=== PATIENT | male | born 1950 | race Caucasian/White ===

== ENCOUNTER 2017-05-02 13:23 | Inpatient (IN) ==
[2017-05-02] MEDS ORDERED: ALBUTEROL/IPRATROPIUM 3 ML NEB RESP TX PRN (13:53)
[2017-05-02] MEDS ORDERED: DOCUSATE SODIUM 100 MG CAPSULE PO PRN (13:53)
[2017-05-02] MEDS ORDERED: GLUCAGON 1 MG VIAL IM PRN (13:53)
[2017-05-02] MEDS ORDERED: ACETAMINOPHEN 325 MG TABLET PO PRN (13:53)
[2017-05-02] MEDS ORDERED: DEXTROSE 50% 25 GM/50 ML VIAL IV PRN (13:53)
[2017-05-02] MEDS ORDERED: BENZONATATE 100 MG CAPSULE PO PRN (13:58)
[2017-05-02] MEDS ORDERED: EPINEPHrine 1 MG/ML VIAL SUBCUT PRN (13:58)
[2017-05-02] MEDS ORDERED: traMADol 50 MG TABLET PO PRN (14:10)
[2017-05-02] MEDS ORDERED: FUROSEMIDE 100 MG/10 ML VIAL IV ONE (16:00)
[2017-05-02 16:39] LABS: Basophils % 0.3 % (0.0-0.8); Hemoglobin 14.4 GM/DL (14.0-18.0); Immature Granulocytes % 2.5 %; Immature Granulocytes Absolute 0.27 #; Lymphocytes # 0.7 10*3/uL (1.4-4.0); Lymphocytes % 6.4 % (21.2-54.2); Mean Corpuscular HGB Conc 33.5 GM/DL (32-36); Mean Corpuscular Hemoglobin 30 PG (27-34); Mean Corpuscular Volume 88.1 FL (87-102); Mean Platelet Volume 9.5 FL (9.6-12.0); Monocytes # 0.9 10*3/uL (0.11-0.8); Monocytes % 7.8 % (1.7-12.7); Platelet Count 224 T/CUMM (130-400); Red Blood Count 4.88 MC/CUMM (3.8-5.5); Red Cell Distribution Width 13.4 % (9.3-17.3); White Blood Count 10.9 T/CUMM (4-12)
[2017-05-02 17:08] LABS: Alanine Aminotransferase 54 U/L (16-61); Albumin 3.5 G/DL (3.4-5.0); Alkaline Phosphatase 83 U/L (45-117); Aspartate Amino Transferase 23 U/L (0-37); Bilirubin,Total < 0.39 MG/DL (0.2-1.0); Blood Urea Nitrogen 19 MG/DL (7-18); Calcium 8.3 MG/DL (8.5-10.1); Glucose 181 MG/DL (74-106); Osmolality,Calculated 279.8 MOS/KG (273-304); Sodium 137 MMOL/L (136-145); Total Protein 6.5 G/DL (6.4-8.3)
[2017-05-02] MEDS: INSULIN LISPRO 100 UNIT/ML SUBCUT SCH ×2 (17:12→21:27)
[2017-05-02] MEDS: methylPREDNISolone SOD SUC 125 MG/2 ML VIAL IV SCH ×2 (17:14→23:11)
[2017-05-02] MEDS: DEXTROSE 5% NACL 0.45% 1,000 ML IV SCH (17:14)
[2017-05-02] MEDS: cefTAZidime 1,000 MG in SYRINGE 1 EACH IV SCH ×2 (17:25→23:13)
[2017-05-02] MEDS: ALBUTEROL 2 MG TABLET PO SCH ×2 (17:32→21:15)
[2017-05-02] MEDS: POTASSIUM CHLORIDE 10 MEQ TABLET PO SCH ×2 (17:42→21:15)
[2017-05-02] MEDS: LEVOFLOXACIN INJ 500 MG in PREMIX 1 EACH IV SCH (17:42)
[2017-05-02 18:16] LABS: Thyroid Stimulating Hormone 0.408 uIU/ml (0.358-3.74)
[2017-05-02 18:18] LABS: Apearance,Urine CLEAR (Clear); Bilirubin,Urine Negative (Negative); Blood, Urine Negative (Negative); Glucose,Urine (UA) Negative (Negative); Ketones,Urine Negative (Negative); Mucus,Urine Occasional /LPF (Occasional); Nitrite,Urine Negative (Negative); Protein,Urine Negative; RBC,Urine <1 /HPF (0-4); Urine Color Straw (Yellow); Urine Specific Gravity 1.005 (1.001-1.035); Urine Urobilinogen < 2.0 EU/DL (0.2-1.0)
[2017-05-02] MEDS: DORNASE ALFA 2.5 MG/2.5 ML VIAL RESP TX SCH (19:42)
[2017-05-02] MEDS: ALBUTEROL/IPRATROPIUM 3 ML NEB RESP TX SCH (19:42)
[2017-05-02] MEDS ORDERED: VENLAFAXINE 75 MG TABLET PO SCH (21:00)
[2017-05-02] MEDS: AZELASTINE NASAL 137 MCG/SPRAY 30 ML BOTTLE BOTH NARES SCH (21:14)
[2017-05-02] MEDS: DOXAZOSIN 4 MG TABLET PO SCH (21:14)
[2017-05-02] MEDS: TAMSULOSIN 0.4 MG CAPSULE PO SCH (21:15)
[2017-05-02] MEDS: DICLOFENAC SODIUM 50 MG TABLET PO SCH (21:16)
[2017-05-02] MEDS: CARBIDOPA/LEVODOPA 25-100 MG TABLET PO SCH (21:16)
[2017-05-02] MEDS: MONTELUKAST 10 MG TABLET PO SCH (21:18)
[2017-05-02] MEDS: cloNIDine 0.1 MG TABLET PO SCH (21:24)
[2017-05-02] MEDS: FLUTICASONE 50 MCG NASAL SPRAY 16 GM BOTTLE BOTH NARES SCH (21:27)
[2017-05-02] MEDS: METHOCARBAMOL 750 MG TABLET PO SCH (21:27)
[2017-05-03 07:07] LABS: Basophils % 0.2 % (0.0-0.8); Hemoglobin 14.1 GM/DL (14.0-18.0); Immature Granulocytes % 2.5 %; Immature Granulocytes Absolute 0.26 #; Lymphocytes # 0.7 10*3/uL (1.4-4.0); Lymphocytes % 6.7 % (21.2-54.2); Mean Corpuscular HGB Conc 32.8 GM/DL (32-36); Mean Corpuscular Hemoglobin 29 PG (27-34); Mean Corpuscular Volume 89.2 FL (87-102); Mean Platelet Volume 9.6 FL (9.6-12.0); Monocytes # 0.3 10*3/uL (0.11-0.8); Monocytes % 2.9 % (1.7-12.7); Neutrophils # 9.2 10*3/uL (1.4-7.4); Neutrophils % 87.7 % (38.7-73.9); Platelet Count 221 T/CUMM (130-400); Red Blood Count 4.82 MC/CUMM (3.8-5.5); Red Cell Distribution Width 13.3 % (9.3-17.3); White Blood Count 10.5 T/CUMM (4-12)
[2017-05-03 07:27] LABS: Calcium 8.4 MG/DL (8.5-10.1); Osmolality,Calculated 280.8 MOS/KG (273-304); Potassium 4.1 MMOL/L (3.5-5.1)
[2017-05-03] MEDS: ALBUTEROL/IPRATROPIUM 3 ML NEB RESP TX SCH ×4 (08:00→21:13)
[2017-05-03] MEDS: ALBUTEROL 2 MG TABLET PO SCH ×3 (08:55→21:29)
[2017-05-03] MEDS: THEOPHYLLINE ER (24 HR) 200 MG CAPSULE PO SCH (08:56)
[2017-05-03] MEDS: POTASSIUM CHLORIDE 10 MEQ TABLET PO SCH ×3 (08:56→21:29)
[2017-05-03] MEDS: METHOCARBAMOL 750 MG TABLET PO SCH ×2 (08:56→21:29)
[2017-05-03] MEDS: BISOPROLOL 5 MG TABLET PO SCH (08:56)
[2017-05-03] MEDS: VENLAFAXINE 75 MG TABLET PO SCH (08:57)
[2017-05-03] MEDS: MULTIVITAMIN (CENTRUM) TABLET PO SCH (08:57)
[2017-05-03] MEDS: DICLOFENAC SODIUM 50 MG TABLET PO SCH ×2 (08:58→21:29)
[2017-05-03] MEDS: CARBIDOPA/LEVODOPA 25-100 MG TABLET PO SCH ×2 (08:58→21:27)
[2017-05-03] MEDS: MONTELUKAST 10 MG TABLET PO SCH ×2 (08:58→21:29)
[2017-05-03] MEDS: OMEGA 3 ACID ETHYL ESTERS 1 GM CAPSULE PO SCH (08:58)
[2017-05-03] MEDS: PANTOPRAZOLE 40 MG TABLET PO SCH (08:58)
[2017-05-03] MEDS: hydroCHLOROthiazide 25 MG TABLET PO SCH (08:59)
[2017-05-03] MEDS: FUROSEMIDE 20 MG/2 ML VIAL IV SCH ×2 (09:00→16:21)
[2017-05-03] MEDS: INSULIN LISPRO 100 UNIT/ML SUBCUT SCH ×4 (09:00→21:28)
[2017-05-03] MEDS: cefTAZidime 1,000 MG in SYRINGE 1 EACH IV SCH ×2 (09:00→16:21)
[2017-05-03] MEDS: methylPREDNISolone SOD SUC 125 MG/2 ML VIAL IV SCH ×2 (09:00→16:20)
[2017-05-03] MEDS ORDERED: [UNRECOGNIZED DRUG - OTHER] INH SCH (09:00)
[2017-05-03] MEDS: AZELASTINE NASAL 137 MCG/SPRAY 30 ML BOTTLE BOTH NARES SCH ×2 (09:04→21:28)
[2017-05-03] MEDS: FLUTICASONE 50 MCG NASAL SPRAY 16 GM BOTTLE BOTH NARES SCH ×2 (09:04→21:28)
[2017-05-03] MEDS: DORNASE ALFA 2.5 MG/2.5 ML VIAL RESP TX SCH ×2 (13:46→21:13)
[2017-05-03] MEDS: DEXTROSE 5% NACL 0.45% 1,000 ML IV SCH (15:44)
[2017-05-03] MEDS: LEVOFLOXACIN INJ 500 MG in PREMIX 1 EACH IV SCH (16:21)
[2017-05-03] MEDS: TAMSULOSIN 0.4 MG CAPSULE PO SCH (21:28)
[2017-05-03] MEDS: DOXAZOSIN 4 MG TABLET PO SCH (21:28)
[2017-05-03] MEDS: cloNIDine 0.1 MG TABLET PO SCH (21:28)
[2017-05-03] MEDS: ZALEPLON 5 MG CAPSULE PO PRN (21:46)
[2017-05-04] MEDS: FUROSEMIDE 20 MG/2 ML VIAL IV SCH ×3 (00:59→16:31)
[2017-05-04] MEDS: methylPREDNISolone SOD SUC 125 MG/2 ML VIAL IV SCH ×3 (01:00→16:33)
[2017-05-04] MEDS: cefTAZidime 1,000 MG in SYRINGE 1 EACH IV SCH ×3 (01:03→16:34)
[2017-05-04 06:49] LABS: Basophils % 0.2 % (0.0-0.8); Hematocrit 42.2 VOL% (42.0-52.0); Hemoglobin 13.8 GM/DL (14.0-18.0); Immature Granulocytes % 2.4 %; Lymphocytes # 0.7 10*3/uL (1.4-4.0); Lymphocytes % 5.6 % (21.2-54.2); Mean Corpuscular HGB Conc 32.7 GM/DL (32-36); Mean Corpuscular Hemoglobin 29 PG (27-34); Mean Corpuscular Volume 88.8 FL (87-102); Mean Platelet Volume 9.5 FL (9.6-12.0); Monocytes # 0.5 10*3/uL (0.11-0.8); Monocytes % 3.8 % (1.7-12.7); Platelet Count 192 T/CUMM (130-400); Red Blood Count 4.75 MC/CUMM (3.8-5.5); Red Cell Distribution Width 13.2 % (9.3-17.3); White Blood Count 12.5 T/CUMM (4-12)
[2017-05-04 07:00] LABS: INR 1.1; PT Patient Result 11.4 SECS; Partial Thromboplastin Time 24.7 SECS (0-40)
[2017-05-04 07:19] LABS: Calcium 8.4 MG/DL (8.5-10.1)
[2017-05-04] MEDS ORDERED: MEPERIDINE 50 MG/1 ML VIAL IM ONE (07:30)
[2017-05-04] MEDS ORDERED: BENZONATATE 100 MG CAPSULE PO ONE (07:30)
[2017-05-04] MEDS ORDERED: diphenhydrAMINE 50 MG/1 ML VIAL IM ONE (07:30)
[2017-05-04] MEDS: ALBUTEROL/IPRATROPIUM 3 ML NEB RESP TX SCH ×4 (07:55→19:12)
[2017-05-04] MEDS: DORNASE ALFA 2.5 MG/2.5 ML VIAL RESP TX SCH ×2 (07:56→19:12)
[2017-05-04] MEDS ORDERED: LIDOCAINE 2% 20 ML VIAL RESP TX ONE (08:00)
[2017-05-04] MEDS ORDERED: LIDOCAINE 2% VISCOUS 100 ML BOTTLE SWISH/SPIT ONE (08:00)
[2017-05-04] MEDS ORDERED: LIDOCAINE 1% 20 ML VIAL MISC INJ ONE (08:00)
[2017-05-04] MEDS: INSULIN LISPRO 100 UNIT/ML SUBCUT SCH ×4 (08:09→21:09)
[2017-05-04] MEDS: MULTIVITAMIN (CENTRUM) TABLET PO SCH ×2 (08:36→11:50)
[2017-05-04] MEDS: AZELASTINE NASAL 137 MCG/SPRAY 30 ML BOTTLE BOTH NARES SCH ×2 (08:36→21:10)
[2017-05-04] MEDS: VENLAFAXINE 75 MG TABLET PO SCH ×2 (08:36→11:50)
[2017-05-04] MEDS: FLUTICASONE 50 MCG NASAL SPRAY 16 GM BOTTLE BOTH NARES SCH ×2 (08:36→21:10)
[2017-05-04] MEDS: POTASSIUM CHLORIDE 10 MEQ TABLET PO SCH ×4 (08:36→21:19)
[2017-05-04] MEDS: hydroCHLOROthiazide 25 MG TABLET PO SCH ×2 (08:36→11:51)
[2017-05-04] MEDS: OMEGA 3 ACID ETHYL ESTERS 1 GM CAPSULE PO SCH ×2 (08:36→11:50)
[2017-05-04] MEDS: ALBUTEROL 2 MG TABLET PO SCH ×4 (08:37→21:11)
[2017-05-04] MEDS: BISOPROLOL 5 MG TABLET PO SCH ×2 (08:37→11:50)
[2017-05-04] MEDS: DICLOFENAC SODIUM 50 MG TABLET PO SCH ×3 (08:37→21:12)
[2017-05-04] MEDS: THEOPHYLLINE ER (24 HR) 200 MG CAPSULE PO SCH ×2 (08:37→11:51)
[2017-05-04] MEDS: CARBIDOPA/LEVODOPA 25-100 MG TABLET PO SCH ×3 (08:37→21:18)
[2017-05-04] MEDS: METHOCARBAMOL 750 MG TABLET PO SCH ×3 (08:37→21:11)
[2017-05-04] MEDS: MONTELUKAST 10 MG TABLET PO SCH ×3 (08:37→21:11)
[2017-05-04] MEDS: PANTOPRAZOLE 40 MG TABLET PO SCH ×2 (08:37→11:52)
[2017-05-04] MEDS: DEXTROSE 5% NACL 0.45% 1,000 ML IV SCH ×2 (08:38→16:24)
[2017-05-04] MEDS: LEVOFLOXACIN INJ 500 MG in PREMIX 1 EACH IV SCH (16:36)
[2017-05-04] MEDS: DOXAZOSIN 4 MG TABLET PO SCH (21:11)
[2017-05-04] MEDS: ZALEPLON 5 MG CAPSULE PO PRN (21:18)
[2017-05-04] MEDS: TAMSULOSIN 0.4 MG CAPSULE PO SCH (21:19)
[2017-05-04] MEDS: cloNIDine 0.1 MG TABLET PO SCH (21:19)
[2017-05-05] MEDS: methylPREDNISolone SOD SUC 125 MG/2 ML VIAL IV SCH ×3 (00:10→15:11)
[2017-05-05] MEDS: FUROSEMIDE 20 MG/2 ML VIAL IV SCH ×3 (00:11→17:23)
[2017-05-05] MEDS: cefTAZidime 1,000 MG in SYRINGE 1 EACH IV SCH ×3 (00:12→15:11)
[2017-05-05 06:38] LABS: Basophils % 0.2 % (0.0-0.8); Hematocrit 42.4 VOL% (42.0-52.0); Hemoglobin 13.9 GM/DL (14.0-18.0); Immature Granulocytes % 1.7 %; Lymphocytes # 0.4 10*3/uL (1.4-4.0); Lymphocytes % 3.7 % (21.2-54.2); Mean Corpuscular HGB Conc 32.8 GM/DL (32-36); Mean Corpuscular Hemoglobin 30 PG (27-34); Mean Platelet Volume 9.9 FL (9.6-12.0); Monocytes # 0.6 10*3/uL (0.11-0.8); Monocytes % 4.8 % (1.7-12.7); Neutrophils # 10.5 10*3/uL (1.4-7.4); Neutrophils % 89.6 % (38.7-73.9); Platelet Count 210 T/CUMM (130-400); Red Blood Count 4.71 MC/CUMM (3.8-5.5); Red Cell Distribution Width 13.2 % (9.3-17.3); White Blood Count 11.8 T/CUMM (4-12)
[2017-05-05 07:01] LABS: Band Neutrophils 1 % (0-10); Hypochromasia 1+; Lymphocytes 3 % (20-55); Platelet Estimate Adequate; Segmented Neutrophils 89 % (50-85); Total Cells Counted 100
[2017-05-05] MEDS: ALBUTEROL/IPRATROPIUM 3 ML NEB RESP TX SCH ×4 (07:02→19:00)
[2017-05-05] MEDS: DORNASE ALFA 2.5 MG/2.5 ML VIAL RESP TX SCH ×2 (07:02→19:00)
[2017-05-05 07:21] LABS: Calcium 8.1 MG/DL (8.5-10.1); Osmolality,Calculated 281.2 MOS/KG (273-304); Potassium 3.8 MMOL/L (3.5-5.1)
[2017-05-05] MEDS: FLUTICASONE 50 MCG NASAL SPRAY 16 GM BOTTLE BOTH NARES SCH ×2 (09:09→21:39)
[2017-05-05] MEDS: AZELASTINE NASAL 137 MCG/SPRAY 30 ML BOTTLE BOTH NARES SCH ×2 (09:09→21:38)
[2017-05-05] MEDS: INSULIN LISPRO 100 UNIT/ML SUBCUT SCH ×4 (09:10→21:37)
[2017-05-05] MEDS: hydroCHLOROthiazide 25 MG TABLET PO SCH (09:11)
[2017-05-05] MEDS: OMEGA 3 ACID ETHYL ESTERS 1 GM CAPSULE PO SCH (09:12)
[2017-05-05] MEDS: BISOPROLOL 5 MG TABLET PO SCH (09:12)
[2017-05-05] MEDS: VENLAFAXINE 75 MG TABLET PO SCH (09:12)
[2017-05-05] MEDS: THEOPHYLLINE ER (24 HR) 200 MG CAPSULE PO SCH (09:12)
[2017-05-05] MEDS: ALBUTEROL 2 MG TABLET PO SCH ×3 (09:13→21:31)
[2017-05-05] MEDS: DICLOFENAC SODIUM 50 MG TABLET PO SCH ×2 (09:13→21:31)
[2017-05-05] MEDS: MULTIVITAMIN (CENTRUM) TABLET PO SCH (09:13)
[2017-05-05] MEDS: PANTOPRAZOLE 40 MG TABLET PO SCH (09:13)
[2017-05-05] MEDS: MONTELUKAST 10 MG TABLET PO SCH ×2 (09:13→21:31)
[2017-05-05] MEDS: METHOCARBAMOL 750 MG TABLET PO SCH ×2 (09:13→21:32)
[2017-05-05] MEDS: POTASSIUM CHLORIDE 10 MEQ TABLET PO SCH ×3 (09:13→21:40)
[2017-05-05] MEDS: CARBIDOPA/LEVODOPA 25-100 MG TABLET PO SCH ×2 (09:13→21:30)
[2017-05-05] MEDS: FLUCONAZOLE 100 MG TABLET PO SCH (11:46)
[2017-05-05] MEDS: AZITHROMYCIN 250 MG TABLET PO SCH (11:49)
[2017-05-05] MEDS: DEXTROSE 5% NACL 0.45% 1,000 ML IV SCH (14:56)
[2017-05-05] MEDS: LEVOFLOXACIN INJ 500 MG in PREMIX 1 EACH IV SCH (17:22)
[2017-05-05] MEDS: cloNIDine 0.1 MG TABLET PO SCH (21:31)
[2017-05-05] MEDS: TAMSULOSIN 0.4 MG CAPSULE PO SCH (21:39)
[2017-05-05] MEDS: DOXAZOSIN 4 MG TABLET PO SCH (21:39)
[2017-05-06] MEDS: ZALEPLON 5 MG CAPSULE PO PRN ×2 (00:14→21:06)
[2017-05-06] MEDS: cefTAZidime 1,000 MG in SYRINGE 1 EACH IV SCH ×3 (00:15→16:37)
[2017-05-06] MEDS: methylPREDNISolone SOD SUC 125 MG/2 ML VIAL IV SCH ×3 (00:18→16:35)
[2017-05-06] MEDS: FUROSEMIDE 20 MG/2 ML VIAL IV SCH ×3 (00:56→16:35)
[2017-05-06] MEDS: DORNASE ALFA 2.5 MG/2.5 ML VIAL RESP TX SCH ×2 (07:20→19:34)
[2017-05-06] MEDS: ALBUTEROL/IPRATROPIUM 3 ML NEB RESP TX SCH ×4 (07:21→19:34)
[2017-05-06] MEDS: INSULIN LISPRO 100 UNIT/ML SUBCUT SCH ×4 (10:14→21:22)
[2017-05-06] MEDS: VENLAFAXINE 75 MG TABLET PO SCH (10:15)
[2017-05-06] MEDS: BISOPROLOL 5 MG TABLET PO SCH (10:16)
[2017-05-06] MEDS: hydroCHLOROthiazide 25 MG TABLET PO SCH (10:18)
[2017-05-06] MEDS: MONTELUKAST 10 MG TABLET PO SCH ×2 (10:18→21:06)
[2017-05-06] MEDS: METHOCARBAMOL 750 MG TABLET PO SCH ×2 (10:20→21:06)
[2017-05-06] MEDS: AZITHROMYCIN 250 MG TABLET PO SCH (10:21)
[2017-05-06] MEDS: THEOPHYLLINE ER (24 HR) 200 MG CAPSULE PO SCH (10:22)
[2017-05-06] MEDS: MULTIVITAMIN (CENTRUM) TABLET PO SCH (10:23)
[2017-05-06] MEDS: POTASSIUM CHLORIDE 10 MEQ TABLET PO SCH ×3 (10:23→21:06)
[2017-05-06] MEDS: DICLOFENAC SODIUM 50 MG TABLET PO SCH ×2 (10:23→21:07)
[2017-05-06] MEDS: OMEGA 3 ACID ETHYL ESTERS 1 GM CAPSULE PO SCH (10:25)
[2017-05-06] MEDS: CARBIDOPA/LEVODOPA 25-100 MG TABLET PO SCH ×2 (10:25→21:07)
[2017-05-06] MEDS: FLUCONAZOLE 100 MG TABLET PO SCH (10:25)
[2017-05-06] MEDS: AZELASTINE NASAL 137 MCG/SPRAY 30 ML BOTTLE BOTH NARES SCH ×2 (10:26→21:08)
[2017-05-06] MEDS: FLUTICASONE 50 MCG NASAL SPRAY 16 GM BOTTLE BOTH NARES SCH ×2 (10:27→21:08)
[2017-05-06] MEDS: PANTOPRAZOLE 40 MG TABLET PO SCH (10:27)
[2017-05-06] MEDS: ALBUTEROL 2 MG TABLET PO SCH ×3 (10:31→21:06)
[2017-05-06] MEDS: LEVOFLOXACIN INJ 500 MG in PREMIX 1 EACH IV SCH (16:36)
[2017-05-06] MEDS: TAMSULOSIN 0.4 MG CAPSULE PO SCH (21:08)
[2017-05-06] MEDS: DOXAZOSIN 4 MG TABLET PO SCH (21:13)
[2017-05-06] MEDS: cloNIDine 0.1 MG TABLET PO SCH (21:14)
[2017-05-07] MEDS: cefTAZidime 1,000 MG in SYRINGE 1 EACH IV SCH ×4 (00:16→23:44)
[2017-05-07] MEDS: methylPREDNISolone SOD SUC 125 MG/2 ML VIAL IV SCH ×4 (00:17→23:45)
[2017-05-07] MEDS: FUROSEMIDE 20 MG/2 ML VIAL IV SCH ×4 (00:17→23:45)
[2017-05-07] MEDS: DORNASE ALFA 2.5 MG/2.5 ML VIAL RESP TX SCH ×2 (07:33→19:16)
[2017-05-07] MEDS: ALBUTEROL/IPRATROPIUM 3 ML NEB RESP TX SCH ×4 (07:33→19:16)
[2017-05-07] MEDS: INSULIN LISPRO 100 UNIT/ML SUBCUT SCH ×4 (08:38→20:52)
[2017-05-07] MEDS: OMEGA 3 ACID ETHYL ESTERS 1 GM CAPSULE PO SCH (08:41)
[2017-05-07] MEDS: BISOPROLOL 5 MG TABLET PO SCH (08:41)
[2017-05-07] MEDS: VENLAFAXINE 75 MG TABLET PO SCH (08:41)
[2017-05-07] MEDS: MULTIVITAMIN (CENTRUM) TABLET PO SCH (08:41)
[2017-05-07] MEDS: PANTOPRAZOLE 40 MG TABLET PO SCH (08:41)
[2017-05-07] MEDS: hydroCHLOROthiazide 25 MG TABLET PO SCH (08:41)
[2017-05-07] MEDS: MONTELUKAST 10 MG TABLET PO SCH ×2 (08:42→20:52)
[2017-05-07] MEDS: DICLOFENAC SODIUM 50 MG TABLET PO SCH ×2 (08:42→20:51)
[2017-05-07] MEDS: THEOPHYLLINE ER (24 HR) 200 MG CAPSULE PO SCH (08:42)
[2017-05-07] MEDS: ALBUTEROL 2 MG TABLET PO SCH ×3 (08:42→20:51)
[2017-05-07] MEDS: METHOCARBAMOL 750 MG TABLET PO SCH ×2 (08:42→20:51)
[2017-05-07] MEDS: CARBIDOPA/LEVODOPA 25-100 MG TABLET PO SCH ×3 (08:42→20:52)
[2017-05-07] MEDS: AZITHROMYCIN 250 MG TABLET PO SCH (08:42)
[2017-05-07] MEDS: POTASSIUM CHLORIDE 10 MEQ TABLET PO SCH ×3 (08:42→20:52)
[2017-05-07] MEDS: FLUCONAZOLE 100 MG TABLET PO SCH (08:43)
[2017-05-07] MEDS: AZELASTINE NASAL 137 MCG/SPRAY 30 ML BOTTLE BOTH NARES SCH ×2 (08:44→20:49)
[2017-05-07] MEDS: FLUTICASONE 50 MCG NASAL SPRAY 16 GM BOTTLE BOTH NARES SCH ×2 (08:44→20:49)
[2017-05-07] MEDS: LEVOFLOXACIN INJ 500 MG in PREMIX 1 EACH IV SCH (16:30)
[2017-05-07] MEDS: cloNIDine 0.1 MG TABLET PO SCH (20:51)
[2017-05-07] MEDS: TAMSULOSIN 0.4 MG CAPSULE PO SCH (20:51)
[2017-05-07] MEDS: DOXAZOSIN 4 MG TABLET PO SCH (20:51)
[2017-05-07] MEDS: ZALEPLON 5 MG CAPSULE PO PRN (23:45)
[2017-05-08] MEDS: FUROSEMIDE 20 MG/2 ML VIAL IV SCH ×3 (00:31→16:12)
[2017-05-08 05:45] LABS: Basophils # 0.1 10*3/uL (0.0-0.2); Basophils % 0.4 % (0.0-0.8); Hematocrit 42.7 VOL% (42.0-52.0); Hemoglobin 14.2 GM/DL (14.0-18.0); Immature Granulocytes % 4.4 %; Immature Granulocytes Absolute 0.54 #; Lymphocytes # 0.4 10*3/uL (1.4-4.0); Lymphocytes % 3.1 % (21.2-54.2); Mean Corpuscular HGB Conc 33.3 GM/DL (32-36); Mean Corpuscular Hemoglobin 29 PG (27-34); Mean Corpuscular Volume 87.7 FL (87-102); Mean Platelet Volume 9.6 FL (9.6-12.0); Monocytes # 0.5 10*3/uL (0.11-0.8); Neutrophils # 10.8 10*3/uL (1.4-7.4); Neutrophils % 88.1 % (38.7-73.9); Platelet Count 178 T/CUMM (130-400); Red Blood Count 4.87 MC/CUMM (3.8-5.5); Red Cell Distribution Width 13.4 % (9.3-17.3); White Blood Count 12.3 T/CUMM (4-12)
[2017-05-08 06:15] LABS: Calcium 7.9 MG/DL (8.5-10.1); Osmolality,Calculated 281.2 MOS/KG (273-304); Potassium 3.9 MMOL/L (3.5-5.1)
[2017-05-08 06:17] LABS: Band Neutrophils 1 % (0-10); Giant Platelets Few; Hypochromasia 1+; Lymphocytes 2 % (20-55); Platelet Estimate Normal; Segmented Neutrophils 95 % (50-85); Total Cells Counted 100
[2017-05-08] MEDS: DORNASE ALFA 2.5 MG/2.5 ML VIAL RESP TX SCH ×2 (07:00→20:02)
[2017-05-08] MEDS: ALBUTEROL/IPRATROPIUM 3 ML NEB RESP TX SCH ×4 (07:05→19:52)
[2017-05-08] MEDS: cefTAZidime 1,000 MG in SYRINGE 1 EACH IV SCH ×2 (10:04→16:12)
[2017-05-08] MEDS: methylPREDNISolone SOD SUC 125 MG/2 ML VIAL IV SCH ×2 (10:05→16:11)
[2017-05-08] MEDS: INSULIN LISPRO 100 UNIT/ML SUBCUT SCH ×4 (10:05→20:43)
[2017-05-08] MEDS: FLUTICASONE 50 MCG NASAL SPRAY 16 GM BOTTLE BOTH NARES SCH ×2 (10:06→20:44)
[2017-05-08] MEDS: AZELASTINE NASAL 137 MCG/SPRAY 30 ML BOTTLE BOTH NARES SCH ×2 (10:06→20:44)
[2017-05-08] MEDS: VENLAFAXINE 75 MG TABLET PO SCH (10:07)
[2017-05-08] MEDS: MONTELUKAST 10 MG TABLET PO SCH ×2 (10:07→20:43)
[2017-05-08] MEDS: FLUCONAZOLE 100 MG TABLET PO SCH (10:08)
[2017-05-08] MEDS: ALBUTEROL 2 MG TABLET PO SCH ×3 (10:08→20:43)
[2017-05-08] MEDS: THEOPHYLLINE ER (24 HR) 200 MG CAPSULE PO SCH (10:08)
[2017-05-08] MEDS: PANTOPRAZOLE 40 MG TABLET PO SCH (10:08)
[2017-05-08] MEDS: BISOPROLOL 5 MG TABLET PO SCH (10:08)
[2017-05-08] MEDS: hydroCHLOROthiazide 25 MG TABLET PO SCH (10:08)
[2017-05-08] MEDS: MULTIVITAMIN (CENTRUM) TABLET PO SCH (10:09)
[2017-05-08] MEDS: AZITHROMYCIN 250 MG TABLET PO SCH (10:09)
[2017-05-08] MEDS: POTASSIUM CHLORIDE 10 MEQ TABLET PO SCH ×3 (10:09→20:43)
[2017-05-08] MEDS: DICLOFENAC SODIUM 50 MG TABLET PO SCH ×2 (10:09→20:42)
[2017-05-08] MEDS: CARBIDOPA/LEVODOPA 25-100 MG TABLET PO SCH (10:09)
[2017-05-08] MEDS: METHOCARBAMOL 750 MG TABLET PO SCH ×2 (10:09→20:42)
[2017-05-08] MEDS: OMEGA 3 ACID ETHYL ESTERS 1 GM CAPSULE PO SCH (10:10)
[2017-05-08] MEDS: metFORMIN 500 MG TABLET PO SCH ×2 (12:41→16:12)
[2017-05-08] MEDS: LEVOFLOXACIN INJ 500 MG in PREMIX 1 EACH IV SCH (16:13)
[2017-05-08] MEDS: cloNIDine 0.1 MG TABLET PO SCH (20:42)
[2017-05-08] MEDS: DOXAZOSIN 4 MG TABLET PO SCH (20:43)
[2017-05-08] MEDS: ZALEPLON 5 MG CAPSULE PO PRN (20:43)
[2017-05-08] MEDS: TAMSULOSIN 0.4 MG CAPSULE PO SCH (20:43)
[2017-05-09] MEDS: cefTAZidime 1,000 MG in SYRINGE 1 EACH IV SCH ×4 (00:32→23:38)
[2017-05-09] MEDS: FUROSEMIDE 20 MG/2 ML VIAL IV SCH ×3 (00:33→16:41)
[2017-05-09] MEDS: methylPREDNISolone SOD SUC 125 MG/2 ML VIAL IV SCH ×4 (00:33→23:37)
[2017-05-09] MEDS: CARBIDOPA/LEVODOPA 25-100 MG TABLET PO SCH ×3 (00:34→22:40)
[2017-05-09 06:43] LABS: Basophils # 0.1 10*3/uL (0.0-0.2); Basophils % 0.4 % (0.0-0.8); Hemoglobin 14.1 GM/DL (14.0-18.0); Immature Granulocytes % 4.5 %; Lymphocytes # 0.4 10*3/uL (1.4-4.0); Lymphocytes % 3.2 % (21.2-54.2); Mean Corpuscular HGB Conc 32.8 GM/DL (32-36); Mean Corpuscular Hemoglobin 29 PG (27-34); Mean Corpuscular Volume 88.1 FL (87-102); Mean Platelet Volume 9.4 FL (9.6-12.0); Monocytes # 0.6 10*3/uL (0.11-0.8); Monocytes % 4.7 % (1.7-12.7); Neutrophils # 11.6 10*3/uL (1.4-7.4); Neutrophils % 87.2 % (38.7-73.9); Platelet Count 175 T/CUMM (130-400); Red Blood Count 4.88 MC/CUMM (3.8-5.5); Red Cell Distribution Width 13.2 % (9.3-17.3); White Blood Count 13.3 T/CUMM (4-12)
[2017-05-09 06:52] LABS: INR 1.1; PT Patient Result 11.3 SECS; Partial Thromboplastin Time 22.7 SECS (0-40)
[2017-05-09 07:03] LABS: Lymphocytes 4 % (20-55); Platelet Estimate Adequate; Segmented Neutrophils 91 % (50-85); Total Cells Counted 100
[2017-05-09 07:04] LABS: Giant Platelets Few; Hypochromasia 1+; Ovalocytes Slight
[2017-05-09] MEDS ORDERED: diphenhydrAMINE 50 MG/1 ML VIAL IM ONE (07:30)
[2017-05-09] MEDS ORDERED: MEPERIDINE 50 MG/1 ML VIAL IM ONE (07:30)
[2017-05-09] MEDS ORDERED: BENZONATATE 100 MG CAPSULE PO ONE (07:30)
[2017-05-09] MEDS: DORNASE ALFA 2.5 MG/2.5 ML VIAL RESP TX SCH ×2 (07:57→19:10)
[2017-05-09] MEDS: ALBUTEROL/IPRATROPIUM 3 ML NEB RESP TX SCH ×4 (07:57→19:02)
[2017-05-09] MEDS ORDERED: LIDOCAINE 2% 20 ML VIAL RESP TX ONE (08:00)
[2017-05-09] MEDS ORDERED: LIDOCAINE 1% 20 ML VIAL MISC INJ ONE (08:00)
[2017-05-09] MEDS ORDERED: LIDOCAINE 2% VISCOUS 100 ML BOTTLE SWISH/SPIT ONE (08:00)
[2017-05-09] MEDS ORDERED: BUPRENORPHINE TRANSDERM SCH (09:00)
[2017-05-09] MEDS: INSULIN LISPRO 100 UNIT/ML SUBCUT SCH ×4 (10:04→22:36)
[2017-05-09] MEDS: metFORMIN 500 MG TABLET PO SCH ×3 (10:05→16:41)
[2017-05-09] MEDS: OMEGA 3 ACID ETHYL ESTERS 1 GM CAPSULE PO SCH (12:20)
[2017-05-09] MEDS: hydroCHLOROthiazide 25 MG TABLET PO SCH (12:20)
[2017-05-09] MEDS: MONTELUKAST 10 MG TABLET PO SCH ×2 (12:21→21:10)
[2017-05-09] MEDS: ALBUTEROL 2 MG TABLET PO SCH ×3 (12:21→21:10)
[2017-05-09] MEDS: MULTIVITAMIN (CENTRUM) TABLET PO SCH (12:21)
[2017-05-09] MEDS: METHOCARBAMOL 750 MG TABLET PO SCH ×2 (12:21→21:10)
[2017-05-09] MEDS: AZITHROMYCIN 250 MG TABLET PO SCH (12:21)
[2017-05-09] MEDS: THEOPHYLLINE ER (24 HR) 200 MG CAPSULE PO SCH (12:21)
[2017-05-09] MEDS: BISOPROLOL 5 MG TABLET PO SCH (12:21)
[2017-05-09] MEDS: PANTOPRAZOLE 40 MG TABLET PO SCH (12:22)
[2017-05-09] MEDS: DICLOFENAC SODIUM 50 MG TABLET PO SCH ×2 (12:22→21:10)
[2017-05-09] MEDS: POTASSIUM CHLORIDE 10 MEQ TABLET PO SCH ×3 (12:22→21:11)
[2017-05-09] MEDS: FLUCONAZOLE 100 MG TABLET PO SCH (12:22)
[2017-05-09] MEDS: VENLAFAXINE 75 MG TABLET PO SCH (12:22)
[2017-05-09] MEDS: FLUTICASONE 50 MCG NASAL SPRAY 16 GM BOTTLE BOTH NARES SCH ×2 (12:23→21:11)
[2017-05-09] MEDS: AZELASTINE NASAL 137 MCG/SPRAY 30 ML BOTTLE BOTH NARES SCH ×2 (12:23→21:11)
[2017-05-09] MEDS: LEVOFLOXACIN INJ 500 MG in PREMIX 1 EACH IV SCH (16:42)
[2017-05-09] MEDS: TAMSULOSIN 0.4 MG CAPSULE PO SCH (21:10)
[2017-05-09] MEDS: DOXAZOSIN 4 MG TABLET PO SCH (21:10)
[2017-05-09] MEDS: cloNIDine 0.1 MG TABLET PO SCH (21:10)
[2017-05-09] MEDS: ZALEPLON 5 MG CAPSULE PO PRN (22:36)
[2017-05-10] MEDS: FUROSEMIDE 20 MG/2 ML VIAL IV SCH ×3 (02:35→16:28)
[2017-05-10] MEDS: metFORMIN 500 MG TABLET PO SCH ×3 (06:41→16:29)
[2017-05-10] MEDS: ALBUTEROL/IPRATROPIUM 3 ML NEB RESP TX SCH ×4 (07:17→19:47)
[2017-05-10] MEDS: DORNASE ALFA 2.5 MG/2.5 ML VIAL RESP TX SCH ×2 (07:22→19:47)
[2017-05-10] MEDS: FLUTICASONE 50 MCG NASAL SPRAY 16 GM BOTTLE BOTH NARES SCH ×2 (09:18→21:12)
[2017-05-10] MEDS: AZELASTINE NASAL 137 MCG/SPRAY 30 ML BOTTLE BOTH NARES SCH ×2 (09:18→21:12)
[2017-05-10] MEDS: methylPREDNISolone SOD SUC 125 MG/2 ML VIAL IV SCH (09:19)
[2017-05-10] MEDS: cefTAZidime 1,000 MG in SYRINGE 1 EACH IV SCH ×2 (09:19→16:27)
[2017-05-10] MEDS: INSULIN LISPRO 100 UNIT/ML SUBCUT SCH ×4 (09:20→22:03)
[2017-05-10] MEDS: MULTIVITAMIN (CENTRUM) TABLET PO SCH (09:21)
[2017-05-10] MEDS: AZITHROMYCIN 250 MG TABLET PO SCH (09:21)
[2017-05-10] MEDS: METHOCARBAMOL 750 MG TABLET PO SCH ×2 (09:21→21:13)
[2017-05-10] MEDS: BISOPROLOL 5 MG TABLET PO SCH (09:22)
[2017-05-10] MEDS: hydroCHLOROthiazide 25 MG TABLET PO SCH (09:22)
[2017-05-10] MEDS: VENLAFAXINE 75 MG TABLET PO SCH (09:22)
[2017-05-10] MEDS: MONTELUKAST 10 MG TABLET PO SCH ×2 (09:23→21:13)
[2017-05-10] MEDS: THEOPHYLLINE ER (24 HR) 200 MG CAPSULE PO SCH (09:23)
[2017-05-10] MEDS: POTASSIUM CHLORIDE 10 MEQ TABLET PO SCH ×3 (09:23→21:13)
[2017-05-10] MEDS: PANTOPRAZOLE 40 MG TABLET PO SCH (09:23)
[2017-05-10] MEDS: FLUCONAZOLE 100 MG TABLET PO SCH (09:23)
[2017-05-10] MEDS: DICLOFENAC SODIUM 50 MG TABLET PO SCH ×2 (09:23→21:14)
[2017-05-10] MEDS: CARBIDOPA/LEVODOPA 25-100 MG TABLET PO SCH ×2 (09:24→21:13)
[2017-05-10] MEDS: ALBUTEROL 2 MG TABLET PO SCH ×3 (09:24→21:13)
[2017-05-10] MEDS: OMEGA 3 ACID ETHYL ESTERS 1 GM CAPSULE PO SCH (09:24)
[2017-05-10] MEDS: methylPREDNISolone SOD SUC 40 MG/1 ML VIAL IV SCH ×2 (10:27→22:04)
[2017-05-10] MEDS: LEVOFLOXACIN INJ 500 MG in PREMIX 1 EACH IV SCH (16:55)
[2017-05-10] MEDS: DOXAZOSIN 4 MG TABLET PO SCH (21:13)
[2017-05-10] MEDS: cloNIDine 0.1 MG TABLET PO SCH (21:13)
[2017-05-10] MEDS: TAMSULOSIN 0.4 MG CAPSULE PO SCH (21:13)
[2017-05-10] MEDS: ZALEPLON 5 MG CAPSULE PO PRN (22:55)
[2017-05-11] MEDS: cefTAZidime 1,000 MG in SYRINGE 1 EACH IV SCH ×3 (00:42→15:23)
[2017-05-11] MEDS: FUROSEMIDE 20 MG/2 ML VIAL IV SCH ×3 (00:46→17:30)
[2017-05-11] MEDS: ALBUTEROL/IPRATROPIUM 3 ML NEB RESP TX SCH ×4 (07:45→19:31)
[2017-05-11] MEDS: DORNASE ALFA 2.5 MG/2.5 ML VIAL RESP TX SCH ×2 (07:51→19:32)
[2017-05-11] MEDS: INSULIN LISPRO 100 UNIT/ML SUBCUT SCH ×4 (08:53→22:41)
[2017-05-11] MEDS: METHOCARBAMOL 750 MG TABLET PO SCH ×2 (08:54→21:14)
[2017-05-11] MEDS: MONTELUKAST 10 MG TABLET PO SCH ×2 (08:54→21:14)
[2017-05-11] MEDS: OMEGA 3 ACID ETHYL ESTERS 1 GM CAPSULE PO SCH (08:54)
[2017-05-11] MEDS: ALBUTEROL 2 MG TABLET PO SCH ×3 (08:54→21:14)
[2017-05-11] MEDS: MULTIVITAMIN (CENTRUM) TABLET PO SCH (08:54)
[2017-05-11] MEDS: THEOPHYLLINE ER (24 HR) 200 MG CAPSULE PO SCH (08:54)
[2017-05-11] MEDS: FLUCONAZOLE 100 MG TABLET PO SCH (08:55)
[2017-05-11] MEDS: PANTOPRAZOLE 40 MG TABLET PO SCH (08:55)
[2017-05-11] MEDS: POTASSIUM CHLORIDE 10 MEQ TABLET PO SCH ×3 (08:55→21:15)
[2017-05-11] MEDS: AZITHROMYCIN 250 MG TABLET PO SCH (08:55)
[2017-05-11] MEDS: VENLAFAXINE 75 MG TABLET PO SCH (08:55)
[2017-05-11] MEDS: BISOPROLOL 5 MG TABLET PO SCH (08:55)
[2017-05-11] MEDS: CARBIDOPA/LEVODOPA 25-100 MG TABLET PO SCH (08:57)
[2017-05-11] MEDS: hydroCHLOROthiazide 25 MG TABLET PO SCH (08:58)
[2017-05-11] MEDS: DICLOFENAC SODIUM 50 MG TABLET PO SCH ×2 (08:58→21:15)
[2017-05-11] MEDS: metFORMIN 500 MG TABLET PO SCH ×3 (08:58→17:31)
[2017-05-11] MEDS: methylPREDNISolone SOD SUC 40 MG/1 ML VIAL IV SCH ×3 (08:59→22:43)
[2017-05-11] MEDS: FLUTICASONE 50 MCG NASAL SPRAY 16 GM BOTTLE BOTH NARES SCH ×2 (09:00→21:13)
[2017-05-11] MEDS: AZELASTINE NASAL 137 MCG/SPRAY 30 ML BOTTLE BOTH NARES SCH ×2 (09:00→21:13)
[2017-05-11] MEDS: LEVOFLOXACIN INJ 500 MG in PREMIX 1 EACH IV SCH (17:31)
[2017-05-11] MEDS: TAMSULOSIN 0.4 MG CAPSULE PO SCH (21:15)
[2017-05-11] MEDS: DOXAZOSIN 4 MG TABLET PO SCH (21:15)
[2017-05-11] MEDS: cloNIDine 0.1 MG TABLET PO SCH (21:15)
[2017-05-11] MEDS: ZALEPLON 5 MG CAPSULE PO PRN (22:42)
[2017-05-12] MEDS: cefTAZidime 1,000 MG in SYRINGE 1 EACH IV SCH ×2 (00:47→09:35)
[2017-05-12] MEDS: FUROSEMIDE 20 MG/2 ML VIAL IV SCH ×2 (00:52→09:34)
[2017-05-12 06:49] LABS: Basophils # 0.1 10*3/uL (0.0-0.2); Basophils % 0.5 % (0.0-0.8); Hematocrit 43.3 VOL% (42.0-52.0); Hemoglobin 14.9 GM/DL (14.0-18.0); Immature Granulocytes % 5.7 %; Immature Granulocytes Absolute 0.67 #; Lymphocytes # 0.4 10*3/uL (1.4-4.0); Lymphocytes % 3.2 % (21.2-54.2); Mean Corpuscular HGB Conc 34.4 GM/DL (32-36); Mean Corpuscular Hemoglobin 29 PG (27-34); Mean Corpuscular Volume 85.4 FL (87-102); Mean Platelet Volume 9.6 FL (9.6-12.0); Monocytes # 0.8 10*3/uL (0.11-0.8); Monocytes % 6.9 % (1.7-12.7); Neutrophils # 9.8 10*3/uL (1.4-7.4); Neutrophils % 83.7 % (38.7-73.9); Platelet Count 159 T/CUMM (130-400); Red Blood Count 5.07 MC/CUMM (3.8-5.5); Red Cell Distribution Width 13.2 % (9.3-17.3); White Blood Count 11.7 T/CUMM (4-12)
[2017-05-12 07:13] LABS: Hypochromasia 1+; Lymphocytes 3 % (20-55); Ovalocytes Slight; Platelet Estimate Normal; Segmented Neutrophils 89 % (50-85); Total Cells Counted 100
[2017-05-12] MEDS: ALBUTEROL/IPRATROPIUM 3 ML NEB RESP TX SCH (07:30)
[2017-05-12 07:50] VITALS: BP 122/90
[2017-05-12] MEDS: DORNASE ALFA 2.5 MG/2.5 ML VIAL RESP TX SCH (07:52)
[2017-05-12] MEDS: INSULIN LISPRO 100 UNIT/ML SUBCUT SCH ×2 (09:34→13:30)
[2017-05-12] MEDS: MULTIVITAMIN (CENTRUM) TABLET PO SCH (09:35)
[2017-05-12] MEDS: AZITHROMYCIN 250 MG TABLET PO SCH (09:36)
[2017-05-12] MEDS: THEOPHYLLINE ER (24 HR) 200 MG CAPSULE PO SCH (09:37)
[2017-05-12] MEDS: hydroCHLOROthiazide 25 MG TABLET PO SCH (09:37)
[2017-05-12] MEDS: DICLOFENAC SODIUM 50 MG TABLET PO SCH (09:37)
[2017-05-12] MEDS: METHOCARBAMOL 750 MG TABLET PO SCH (09:37)
[2017-05-12] MEDS: VENLAFAXINE 75 MG TABLET PO SCH (09:38)
[2017-05-12] MEDS: BISOPROLOL 5 MG TABLET PO SCH (09:38)
[2017-05-12] MEDS: FLUCONAZOLE 100 MG TABLET PO SCH (09:38)
[2017-05-12] MEDS: POTASSIUM CHLORIDE 10 MEQ TABLET PO SCH (09:39)
[2017-05-12] MEDS: AZELASTINE NASAL 137 MCG/SPRAY 30 ML BOTTLE BOTH NARES SCH (09:39)
[2017-05-12] MEDS: MONTELUKAST 10 MG TABLET PO SCH (09:39)
[2017-05-12] MEDS: PANTOPRAZOLE 40 MG TABLET PO SCH (09:39)
[2017-05-12] MEDS: OMEGA 3 ACID ETHYL ESTERS 1 GM CAPSULE PO SCH (09:39)
[2017-05-12] MEDS: metFORMIN 500 MG TABLET PO SCH ×2 (09:39→13:29)
[2017-05-12] MEDS: ALBUTEROL 2 MG TABLET PO SCH (09:39)
[2017-05-12] MEDS: FLUTICASONE 50 MCG NASAL SPRAY 16 GM BOTTLE BOTH NARES SCH (09:40)
[2017-05-12] MEDS: methylPREDNISolone SOD SUC 40 MG/1 ML VIAL IV SCH (10:59)
== END 2017-05-12 14:15 | disposition home or self-care (01) | DRG 202 ==
LOC: N.5E 15:42
PROVIDERS: ADMIT Internal Medicine Pulmonary Disease; ATTEND Internal Medicine Pulmonary Disease